=== PATIENT | male | born 1985 | race Two or more races ===

== ENCOUNTER → 2021-06-03 | Outpatient (REF) ==
--- NOTE | 2021-06-03 20:27 | REP ---
INDICATION: NEOROPATHY COMPARISON: None. TECHNIQUE: AP, lateral, coned-down views of the lumbar spine. FINDINGS: Three views of the lumbosacral spine demonstrate satisfactory alignment and lordosis without acute fracture / compression injury or subluxation. Examination is relatively age-appropriate and without significant degenerative changes. IMPRESSION: 1. No acute fracture / compression injury or subluxation. 2. No significant degenerative changes by radiographic evaluation. If the patient remains symptomatic consider MRI for further investigation. <Electronically signed by Freddy Parker > 06/03/212022
--- NOTE | 2021-06-03 20:38 | REP ---
INDICATION: NEOROPATHY. COMPARISON: None. TECHNIQUE: AP, lateral, swimmer's and open-mouth views of the cervical spine FINDINGS: Moderate degenerative changes include endplate sclerosis with anterior spurring/osteophyte formation primarily involving C4-5 and C5-6 and to a lesser extent C6-7. Alignment is maintained. No acute fracture/compression injury or subluxation. Posterior elements and spinous processes are intact. Open mouth view demonstrates normal C1-C2 articulation and odontoid process. IMPRESSION: Moderate degenerative spondylosis. <Electronically signed by Freddy Parker > 06/03/210
== END ==
LOC: M PLAIMG 14:14
PROVIDERS: ATTEND Internal Medicine
DX: G62.9 Polyneuropathy, unspecified (principal)

== ENCOUNTER → 2021-11-13 | Outpatient (CLI) | payer MEDICAID, MEDICARE ==
[~2021-11-13] MED LIST: CARB300C6 PO; CYMB60CA4 PO; ISOVUE-370 76% 100ML VIAL As Ordered ONE; LITH300C PO; LITH45TASA PO; PREG100CA PO; SUMA6CAR SC; WELLTAB38 PO
== END ==
LOC: M RAD 14:40
PROVIDERS: ATTEND Otolaryngology
DX: R93.89 Abnormal findings on diagnostic imaging of other specified body structures (principal)
CPT/HCPCS: 70491; Q9967

== ENCOUNTER 2021-11-18 11:31 | Day surgery (SDC) | payer MEDICAID, MEDICARE, OTHER ==
[~2021-11-18] VITALS: Ht 165.1 cm; Wt 79.4 kg
[~2021-11-18 11:31] MED LIST changes: +BACITRACIN OINTMENT 30GM TUBE As Ordered ONE; -ISOVUE-370 76% 100ML VIAL As Ordered ONE; +LIDOCAINE 1% MDV 20ML VIAL SQ PRN; +LIDOCAINE W/EPINEPHRINE 1% 20ML VIAL As Ordered ONE; +LR 1,000 ML IV SCH
[2021-11-18] MEDS ORDERED: propofoL 200 MG/20 ML VIAL As Ordered ONE (12:47)
[2021-11-18] MEDS ORDERED: ROCURONIUM BROMIDE 50 MG/5 ML VIAL As Ordered ONE (12:47)
[2021-11-18] MEDS ORDERED: fentaNYL 250 MCG/5 ML INJECTION As Ordered ONE (12:47)
[2021-11-18] MEDS ORDERED: dexameTHASONE 4 MG/ML 1ML VIAL (J1100 PER 1MG) As Ordered ONE (12:47)
[2021-11-18] MEDS ORDERED: LIDOCAINE 2% 100MG/5ML SDV (FOR ANES.) As Ordered ONE (12:47)
[2021-11-18] MEDS ORDERED: MIDAZOLAM INJ 2MG/2ML VIAL (J2250 PER 1MG) As Ordered ONE (12:47)
[2021-11-18] MEDS ORDERED: SUGAMMADEX SODIUM 500 MG/5 ML VIAL (BRIDION) As Ordered ONE (12:47)
[2021-11-18] MEDS ORDERED: ONDANSETRON 4MG/2ML VIAL As Ordered ONE (12:47)
[2021-11-18] MEDS ORDERED: ACETAMINOPHEN 1000MG 100ML IV BTL (OFIRMEV) (J0131 PER 10MG) As Ordered ONE (12:58)
[2021-11-18] MEDS ORDERED: ONDANSETRON 4MG/2ML VIAL IV PRN (14:20)
[2021-11-18] MEDS ORDERED: LR 1,000 ML IV SCH (14:20)
[2021-11-18] MEDS ORDERED: oxyCODONE 5MG TAB PO PRN (14:20)
[2021-11-18] MEDS ORDERED: fentaNYL 100 MCG/2 ML INJECTION IV PRN (14:20)
[2021-11-18 15:15] VITALS: BP 122/78
== END 2021-11-18 15:22 | disposition home or self-care (01) ==
LOC: M SDC 11:31
PROVIDERS: ATTEND Otolaryngology
DX: R22.1 Localized swelling, mass and lump, neck (principal); E78.5 Hyperlipidemia, unspecified; F31.9 Bipolar disorder, unspecified; F43.10 Post-traumatic stress disorder, unspecified; G43.909 Migraine, unspecified, not intractable, without status migrainosus; G47.30 Sleep apnea, unspecified; J45.909 Unspecified asthma, uncomplicated; Z79.899 Other long term (current) drug therapy; Z88.0 Allergy status to penicillin
CPT/HCPCS: 21555; 88307; J0131; J1100; J2250; J2405; J3010

== ENCOUNTER → 2021-12-14 | Outpatient (CLI) | payer OTHER ==
[~2021-12-14] MED LIST changes: -BACITRACIN OINTMENT 30GM TUBE As Ordered ONE; -LIDOCAINE 1% MDV 20ML VIAL SQ PRN; -LIDOCAINE W/EPINEPHRINE 1% 20ML VIAL As Ordered ONE; -LR 1,000 ML IV SCH; +LYRI150C PO; +ONDA-84 PO; +PROC10TA5 PO; +VITA-199 PO
== END ==
LOC: M PLARAD 13:05
PROVIDERS: ATTEND Internal Medicine Medical Oncology
DX: R93.89 Abnormal findings on diagnostic imaging of other specified body structures (principal); C81.91 Hodgkin lymphoma, unspecified, lymph nodes of head, face, and neck
CPT/HCPCS: 78815; A9552

== ENCOUNTER → 2021-12-16 | Outpatient (CLI) | payer OTHER ==
[~2021-12-16] MED LIST changes: -LYRI150C PO; -ONDA-84 PO; -PROC10TA5 PO; -VITA-199 PO
== END ==
LOC: M CARPUL 12:15
PROVIDERS: ATTEND Internal Medicine Medical Oncology
DX: C81.91 Hodgkin lymphoma, unspecified, lymph nodes of head, face, and neck (principal)

== ENCOUNTER → 2021-12-28 | Outpatient (CLI) | payer OTHER ==
[~2021-12-28] MED LIST changes: +LYRI150C PO; +ONDA-84 PO; +PROC10TA5 PO; +VITA-199 PO
== END ==
LOC: M CARPUL 11:00
DX: C81.91 Hodgkin lymphoma, unspecified, lymph nodes of head, face, and neck (principal)

== ENCOUNTER → 2022-01-07 | Outpatient (CLI) | payer OTHER ==
[~2022-01-07] MED LIST changes: +LIDOCAINE 1% MDV 20ML VIAL As Ordered ONE; +PERC5TAB12 PO
[2022-01-07 11:15] VITALS: BP 125/85
== END ==
LOC: M IRPRO 09:01
PROVIDERS: ATTEND Specialist
DX: R19.09 Other intra-abdominal and pelvic swelling, mass and lump (principal)

== ENCOUNTER → 2022-02-09 | Outpatient (POV) | payer OTHER ==
[~2022-02-09] VITALS: Ht 165.1 cm; Wt 83.6 kg
[~2022-02-09] MED LIST changes: -LIDOCAINE 1% MDV 20ML VIAL As Ordered ONE
[2022-02-09 13:30] VITALS: BP 137/93
== END ==
LOC: M IRPOV 13:12
PROVIDERS: ATTEND Radiology Diagnostic Radiology
DX: Z45.2 Encounter for adjustment and management of vascular access device (principal)

== ENCOUNTER → 2022-05-03 | Outpatient (CLI) | payer MEDICARE, OTHER | LOC: M PLARAD 08:39 | PROVIDERS: ATTEND Internal Medicine Medical Oncology | DX: R93.89 Abnormal findings on diagnostic imaging of other specified body structures (principal); C81.91 Hodgkin lymphoma, unspecified, lymph nodes of head, face, and neck | CPT/HCPCS: 78815; A9552 ==

== ENCOUNTER → 2022-07-05 | Outpatient (CLI) | payer MEDICARE, OTHER ==
[~2022-07-05] MED LIST changes: +BACT800T5 PO; +MAGICMW SSP; +ORAL0.1P MT
== END ==
LOC: M ONCR 10:45
PROVIDERS: ATTEND General Practice
DX: C81.10 Nodular sclerosis Hodgkin lymphoma, unspecified site (principal); E78.5 Hyperlipidemia, unspecified; F32.A Depression, unspecified; F43.12 Post-traumatic stress disorder, chronic; Z79.899 Other long term (current) drug therapy; Z80.0 Family history of malignant neoplasm of digestive organs; Z80.1 Family history of malignant neoplasm of trachea, bronchus and lung; Z80.51 Family history of malignant neoplasm of kidney; Z80.6 Family history of leukemia; Z81.8 Family history of other mental and behavioral disorders; Z82.5 Family history of asthma and other chronic lower respiratory diseases; Z83.3 Family history of diabetes mellitus; Z88.0 Allergy status to penicillin; Z92.21 Personal history of antineoplastic chemotherapy
CPT/HCPCS: 78815; A9552; G0463

== ENCOUNTER → 2022-07-05 | Outpatient (CLI) | payer MEDICARE, OTHER | LOC: M PLARAD 12:08 | PROVIDERS: ATTEND Internal Medicine Medical Oncology | DX: C81.98 Hodgkin lymphoma, unspecified, lymph nodes of multiple sites (principal) | CPT/HCPCS: 78815; A9552 ==

== ENCOUNTER → 2023-02-08 | Outpatient (CLI) | payer MEDICARE, OTHER ==
[~2023-02-08] MED LIST changes: +OLAN1TAB16; +ROSU5TAB5; +TRAZ1TAB10; +ZYPR20TA PO
[2023-02-08 15:50] LABS: RHEUMATOID FACTOR QUANT 6.6 IU/ML (<14)
[2023-02-08 16:03] LABS: HEPATITIS B SURFACE ANTIGEN NEGATIVE (NEGATIVE)
[2023-02-08 16:16] LABS: HIV 1&2 SCREEN CENTAUR NEGATIVE (NEGATIVE)
[2023-02-08 16:24] LABS: HEPATITIS C VIRUS ABY INDEX < 0.0 INDEX (<0.8)
[2023-02-16 14:14] LABS: CMV QUANT DNA PCR (PLASMA) Negative (Negative); CYCLIC CITRULLINATED PEPTIDE 2 units (0-19); CYTOMEGALOVIRUS IgM ANTIBODY <30.0 AU/mL (0.0-29.9); EBV AB TO NUCLEAR ANTIGEN >600.0 U/mL (0.0-17.9); EBV VIRAL CAPSID AG IgG >600.0 U/mL (0.0-17.9); EBV VIRAL CAPSID AG IgM <36.0 U/mL (0.0-35.9); HLA-B27 Negative (.); IgG P18 AB Absent (.); IgG P23 AB Absent (.); IgG P28 AB Absent (.); IgG P30 AB Absent (.); IgG P39 AB Absent (.); IgG P41 AB Absent (.); IgG P45 AB Absent (.); IgG P66 AB Absent (.); IgG P93 AB Absent (.); IgM P23 AB Absent (.); IgM P39 AB Absent (.); IgM P41 AB Absent (.); LYME IgG WB INTERPRETATION Negative (.); LYME IgM WB INTERPRETATION Negative (.)
== END ==
LOC: M PLALAB 13:03
PROVIDERS: ATTEND Internal Medicine Infectious Disease
DX: R50.9 Fever, unspecified (principal); M79.89 Other specified soft tissue disorders

== ENCOUNTER → 2023-03-17 | Outpatient (CLI) | payer MEDICARE, OTHER | LOC: M CARPUL 09:04 | PROVIDERS: ATTEND Internal Medicine Infectious Disease | DX: R50.9 Fever, unspecified (principal) ==

== ENCOUNTER → 2023-04-06 | Outpatient (CLI) | payer MEDICARE, OTHER ==
[~2023-04-06] MED LIST changes: +GASTROGRAFIN SOLUTION 30ML As Ordered ONE; +ISOVUE-370 76% 100ML VIAL As Ordered ONE
== END ==
LOC: M RAD 13:45
PROVIDERS: ATTEND Internal Medicine Infectious Disease
DX: C81.18 Nodular sclerosis Hodgkin lymphoma, lymph nodes of multiple sites (principal); R59.9 Enlarged lymph nodes, unspecified
CPT/HCPCS: 70491; 71260; 74160; Q9963; Q9967

== ENCOUNTER → 2023-05-23 | Outpatient (CLI) | payer MEDICARE, OTHER ==
[~2023-05-23] MED LIST changes: -GASTROGRAFIN SOLUTION 30ML As Ordered ONE; -ISOVUE-370 76% 100ML VIAL As Ordered ONE; +PANT40TA29
== END ==
LOC: M PLARAD 10:11
PROVIDERS: ATTEND Nurse Practitioner
DX: C81.18 Nodular sclerosis Hodgkin lymphoma, lymph nodes of multiple sites (principal)
CPT/HCPCS: 78815; A9552

== ENCOUNTER → 2023-05-30 | Outpatient (CLI) | payer MEDICARE, OTHER | LOC: M RAD 11:25 | PROVIDERS: ATTEND Internal Medicine Hematology & Oncology | DX: C81.90 Hodgkin lymphoma, unspecified, unspecified site (principal) ==

== ENCOUNTER → 2023-08-29 | Outpatient (CLI) | payer MEDICARE, OTHER | LOC: M PLARAD 09:53 | PROVIDERS: ATTEND Nurse Practitioner | DX: C81.90 Hodgkin lymphoma, unspecified, unspecified site (principal) | CPT/HCPCS: 78815; A9552 ==